=== PATIENT | male | born 1950 | race Caucasian/White ===

== ENCOUNTER 2016-10-02 15:30 | Outpatient (CLI) | payer MEDICARE, OTHER ==
[2016-10-02 16:24] LABS: ALT (SGPT) 15 U/L (0-55); AST (SGOT) 17 U/L (5-34); Albumin 3.7 g/dL (3.4-4.8); Alkaline Phosphatase 64 U/L (40-150); Anion Gap 15 mmol/L (10-20); BUN (Urea Nitrogen) 14 mg/dL (8.4-25.7); Bilirubin, Total 0.8 mg/dL (0.2-1.2); Calc. Creatinine Clearance 0 mL/min (70-130); Calcium 8.7 mg/dL (7.8-10.44); Carbon Dioxide 27 mmol/L (23-31); Cardiac Risk 3.9 (Less than 4.5); Chloride 100 mmol/L (98-107); Cholesterol 152 mg/dL (< 200 Desired); Eosinophils 1 % (0-10); Estimated GFR-MDRD 55; Globulin 3.2 g/dL (2.4-3.5); Glucose 180 mg/dL (80-115); HDL Cholesterol 39 mg/dL (>60 Neg Risk); Hemoglobin 14.1 g/dL (14.0-18.0); Hemoglobin A1c 8.5 % (4.0-6.0); LDL Cholesterol, Calculated 92 mg/dL; Lymphocytes 22 % (21-51); MDiff Complete? YES; Mean Corpuscular HGB CONC 34.2 g/dL (32.0-36.0); Mean Corpuscular Hemoglobin 29.4 pg (27.0-31.0); Mean Corpuscular Volume 85.9 fl (80.0-94.0); Mean Platelet Volume 8.7 fL (7.4-10.4); Monocytes 8 % (0-10); Neutrophil 68 % (42-75); PLT Morphology Comment Appears Adequate; Platelet Count 194 thou/uL (130-400); Potassium 4.4 mmol/L (3.5-5.1); Protein, Total 6.9 g/dL (5.8-8.1); RBC Distribution Width 12.2 % (11.5-14.5); Red Blood Cell (RBC) Count 4.79 mill/uL (4.70-6.10); Sodium 138 mmol/L (136-145); Triglycerides 104 mg/dL (Less than 150); White Blood Cell (WBC) Count 6.9 thou/uL (4.8-10.8)
--- NOTE | 2016-10-02 18:03 | RAD ---
CHEST TWO VIEWS: History: Dyspnea. FINDINGS: No comparison. The cardiac silhouette and pulmonary vasculature are unremarkable. Mediastinum is m idline with aortic calcification. There is no confluent airspace consolidation or evidence of pneum othorax. No pleural fluid is evident. IMPRESSION: Atherosclerosis. No active cardiopulmonary abnormalities are demonstrated. POS: [facility]
== END 2016-10-02 15:31 | disposition home or self-care (01) ==
LOC: MADLABBHPM 15:30
PROVIDERS: ATTEND Family Medicine
DX: I25.10 Atherosclerotic heart disease of native coronary artery without angina pectoris (principal); E11.9 Type 2 diabetes mellitus without complications
CPT/HCPCS: 36415; 71020; 80053; 80061; 83036; 83880; 84443; 85025; 85379; 93005

== ENCOUNTER 2018-07-23 08:21 | Outpatient (CLI) | payer MEDICARE, BC ==
--- NOTE | 2018-07-23 10:13 | CT ---
CT CERVICAL SPINE WITHOUT CONTRAST: Date: 07/23/18 HISTORY: Radiculopathy. COMPARISON: None. CORRELATION: CT angiogram of chest dated 02/11/15, CT chest 12/14/16. FINDINGS: Redemonstration of indeterminate nodule involving the left adrenal gland measuring 2.2 x 1.0 cm. Slig ht interval increase in size. Remaining visualized solid organs and intra-abdominal structures are un remarkable. Atherosclerosis of the aorta. Gallbladder is surgically absent. Symmetric attenuation of psoas muscles. Five lumbar-type vertebral bodies. Lumbar spine vertebral body height is maintained. There is no frac ture. No spondylolysis. 1.2 mm of anterolisthesis of L2 upon L3. 2.4 mm of retrolisthesis of L3 upon L4. Limited evaluation of the contents of the central spinal canal and neural foramina due to technique. T11-T12 and T12-L1: No significant central canal stenosis or foraminal narrowing. L1-L2: No significant central canal stenosis. Neural foramina are patent. L2-L3: Generalized disc bulge, ligamentum flavum thickening, and facet hypertrophy result in moderat e central canal stenosis. Right neural foramen is patent. Moderate left foraminal narrowing. L3-L4: Small left and right paracentral disc bulges. Mild central canal stenosis. Moderate bilateral neural foraminal narrowing. L4-L5: Generalized disc bulge results in mild to moderate central canal stenosis. Moderate bilateral neural foraminal narrowing. L5-S1: No significant central canal stenosis. Mild right and moderate left foraminal narrowing. IMPRESSION: 1. No evidence of lumbar spine fracture. 2. Degenerative changes of lumbar spine as above. POS: [facility]
== END 2018-07-23 08:22 | disposition home or self-care (01) ==
LOC: MADCT 08:21
PROVIDERS: ATTEND Neurological Surgery
DX: M47.26 Other spondylosis with radiculopathy, lumbar region (principal)
CPT/HCPCS: 72131